=== PATIENT | male | born 1970 | race African-American/Black ===

== ENCOUNTER 2021-08-08 09:16 | Outpatient (CLI) | payer OTHER, SELFPAY ==
--- NOTE | ~2021-08-08 | XR_ITS ---
EXAMINATION: XR lumbar spine min 4V EXAM DATE: 08/08/2021 09:30 INDICATION: M54.50 - Low back pain, unspecified TECHNIQUE: Lumber spine frontal, lateral, bilateral oblique projections. Coned down frontal and lat eral L5-S1 lumbar projections for interpretation. There is no prior study for comparison. FINDINGS: There is no spondylolysis. The vertebral bodies are aligned in the AP dimension. Vertebral body and disc heights are well-maintained. Mild lumbar facet arthropathy. There are no acute fracture s identified. Sacrum, sacroiliac joints, sacral arcuate lines are intact. Paraspinal soft tissue is u nremarkable. IMPRESSION: Mild lumbar facet arthropathy. Reviewed, dictated and finalized at location A. [facility]
== END 2021-08-08 09:17 | disposition home or self-care (01) ==
PROVIDERS: PCP Family Medicine; Visit Provider Physician Assistant
DX: M54.50 Low back pain, unspecified (principal)
CPT/HCPCS: 72110

== ENCOUNTER 2023-03-26 02:49 | Emergency (ER) | payer OTHER, SELFPAY ==
--- NOTE | ~2023-03-26 | CT_ITS ---
Non-contrast CT scan of the Abdomen and Pelvis Clinical indication: Right flank pain Technique: 2.5 mm axial scans were obtained through the abdomen and pelvis without intravenous or or al contrast. Dose reduction technique was used on this scan by utilizing automated exposure control a nd iterative reconstruction technique. The dose-length product (DLP) was 581.32 mGy-cm. Findings: Images through the lung bases reveal no abnormalities. There is no evidence of renal or ureteral calculi. The kidneys and the ureters are nondilated. The liver, spleen, pancreas, gallbladder, and adrenals appear normal. There is no aortic aneurysm. There is no evidence of bowel obstruction. No evidence for appendicitis. Images through the pelvis were performed. There is no evidence of ascites or lymphadenopathy. Urinary bladder unremarkable. No pelvic mass seen. Impression: No significant abnormality seen. Reviewed, dictated and finalized at [facility]. Impression: No significant abnormality seen.
[2023-03-26 02:51] VITALS: BP 147/96; PULSE 65; RESP 16; TEMP 36.4; O2SAT 99
[2023-03-26] MEDS: ONDANSETRON INJ 4 MG/2 ML VIAL IV PUSH (03:47)
[2023-03-26] MEDS: SODIUM CHLORIDE 0.9% IV 1,000 ML 999 ML IV CONT (03:47)
[2023-03-26] MEDS: MORPHINE SULFATE (*CRX) 4 MG/ML INJ IV PUSH (03:48)
[2023-03-26 03:51] LABS: Basophils Percent Auto 0.4 % (0.2-1.2); Eosinophils Absolute Auto 0.4 K/mm3 (0-0.3); Eosinophils Percent Auto 5.4 % (0-4.4); Hematocrit 40.4 % (42.0-52.0); Hemoglobin 13.6 g/dL (14.0-18.0); Lymphocytes Absolute Auto 2.26 K/mm3 (0.9-3.2); Lymphocytes Percent Auto 30.5 % (18.3-44.2); Mean Corpuscular HGB Conc 33.7 g/dl (32-36); Mean Corpuscular Hemoglobin 30.3 pg (26-34); Mean Platelet Volume 10.7 fl (7.4-10.4); Monocytes Absolute Auto 0.6 K/mm3 (0.1-0.6); Monocytes Percent Auto 8.2 % (2.6-8.5); Neutrophils Absolute Auto 4.1 K/mm3 (1.3-6.7); Neutrophils Percent Auto 55.5 % (45.5-73.1); Platelet Count Result 233 k/mm3 (150-375); Red Blood Count 4.49 M/mm3 (4.6-6.20); Red Cell Distribution Width 11.9 % (11.5-14.5); White Blood Count 7.4 K/mm3 (4.5-10.0)
[2023-03-26 03:53] LABS: Appearance Urine Clear (Clear); Bilirubin Urine Negative (Negative); Blood Urine Negative (Negative); Color Urine Yellow (Yellow); Glucose Urine UA Negative (Negative); Ketones Urine Negative (Negative); Leukocyte Esterase Ur Negative LEU/UL (Negative); Nitrate Urine Negative (Negative); Protein Urine Negative (Negative); Specific Grav Ur 1.022 (1.001-1.035)
[2023-03-26 04:01] LABS: Lactic Acid Reflex 0.6 mmol/L (0.7-2.0)
[2023-03-26 04:02] LABS: Alanine Aminotransferase 26 U/L (6-50); Albumin Level 4.1 g/dL (3.5-5.1); Alkaline Phosphatase 72 U/L (38-126); Anion Gap 4 mmol/L (8-16); Aspartate Amino Transferase 26 U/L (17-59); Bilirubin,Total 0.8 mg/dL (0.2-1.3); Blood Urea Nitrogen 14 mg/dL (9-20); Calcium 8.8 mg/dL (8.4-10.2); Carbon Dioxide 28 mmol/L (22-30); Chloride 106 mmol/L (98-107); Estimated CRCL calculation 78 ml/min; Estimated Glomerular Filt Rate > 60; Glucose 107 mg/dL (65-110); Lipase 37 U/L (23-300); Potassium 3.7 mmol/L (3.4-5.0); Sodium 138 mmol/L (137-145)
[2023-03-26 04:13] LABS: Add Urine Microscopic? NO
[2023-03-26 04:30] VITALS: BP 133/82; PULSE 56; RESP 14; O2SAT 94
--- NOTE | 2023-03-26 05:04 | ED.GENADULT ---
HPI - General Adult General Chief complaint: Back Pain/Injury Stated complaint: back pain Time Seen by Provider: 03/26/23 03:01 History of Present Illness HPI narrative: Patient 52-year-old gentleman who presents emerged department with chief complaint of right flank pain. Patient reports that started having pain in the right flank area reports is worse with movement worse with inspiration. The patient denies any bowel or bladder symptoms denies numbness or tingling denies saddle anesthesia denies foot drop. Related Data Allergies Allergy/AdvReac Type Severity Reaction Status Date / Time No Known Allergies Allergy Verified 09/27/22 09:52 Review of Systems Review of Systems: A 10 system review of systems was completed on the patient and is negative except for what is stated in the HPI. Nursing and ancillary documentation was reviewed. [facility] Family History Family History Mother Family history of malignant neoplasm of breast in first degree relative Social History Social History Smoking status: Never smoker Alcohol intake: never Substance use: never Living arrangements: with family Occupation/Education: occupation Gender identity (if verbalized by the patient): Male Sexual Orientation (if Verbalized by the Patient): Straight or Heterosexual Spiritual care concerns: No Exam Narrative: GENERAL: Well-appearing, well-nourished, and in no acute distress. HEAD: Normocephalic, atraumatic. EYES: PERRLA and EOMI. ENT: Nares clear, no rhinorrhea or epistaxis. Mucous membranes moist. NECK: Supple. CHEST: Clear to auscultation. No respiratory distress. HEART: Regular rate and rhythm. No murmur heard. Normal peripheral pulses. ABDOMEN: Soft, nontender, nondistended, normal active bowel sounds. Flank: There is tenderness to palpation of the right flank area EXTREMITIES: Normal range of motion. No edema. SKIN: Warm, dry, no rash. NEURO: No focal deficits. Alert and oriented x3. PSYCH: Normal mood and affect. Course Vital Signs Vital signs: Vital Signs Temperature 36.4 C 03/26/23 02:51 Pulse Rate 65 03/26/23 02:51 Respiratory Rate 16 03/26/23 02:51 Blood Pressure 147/96 H 03/26/23 02:51 Pulse Oximetry 99 03/26/23 02:51 Oxygen Delivery Room Air 03/26/23 02:51 Temperature 36.4 C 03/26/23 02:51 Pulse Rate 56 L 03/26/23 04:30 Respiratory Rate 14 03/26/23 04:30 Blood Pressure 133/82 03/26/23 04:30 Pulse Oximetry 94 03/26/23 04:30 Oxygen Delivery Room Air 03/26/23 02:51 Medical Decision Making MDM Narrative Medical decision making narrative: Differential diagnosis includes musculoskeletal back pain, kidney stone, Laboratory studies were obtained which showed normal CBC electrolytes are within normal's lactic acid was normal urinalysis showed no acute findings CT scan of the abdomen pelvis showed no evidence of kidney stone no evidence of enlarged aorta no acute findings. Vital Signs Vital Signs: Vital Signs Temperature 36.4 C 03/26/23 02:51 Pulse Rate 65 03/26/23 02:51 Respiratory Rate 16 03/26/23 02:51 Blood Pressure 147/96 H 03/26/23 02:51 Pulse Oximetry 99 03/26/23 02:51 Oxygen Delivery Room Air 03/26/23 02:51 Temperature 36.4 C 03/26/23 02:51 Pulse Rate 56 L 03/26/23 04:30 Respiratory Rate 14 03/26/23 04:30 Blood Pressure 133/82 03/26/23 04:30 Pulse Oximetry 94 03/26/23 04:30 Oxygen Delivery Room Air 03/26/23 02:51 Lab Data 03/26/23 03:45 03/26/23 03:45 Labs: Lab Results 03/26/23 Range/Units 03:45 WBC 7.4 (4.5-10.0) K/mm3 RBC 4.49 L (4.6-6.20) M/mm3 Hgb 13.6 L (14.0-18.0) g/dL Hct 40.4 L (42.0-52.0) % MCV 90.0 (80-100) fl MCH 30.3 (26-34) pg MCHC 33.7 (32-36) g/dl RDW 11.9 (11.5-14.5) % Plt Count 23
== END 2023-03-26 06:37 | disposition home or self-care (01) ==
PROVIDERS: Emergency Provider Emergency Medicine; PCP Family Medicine
DX: R10.9 Unspecified abdominal pain (principal)
CPT/HCPCS: 36415; 74176; 80053; 81003; 83605; 83690; 85025; 96361; 96374; 96375; 99284; J2270; J2405; J7030

== ENCOUNTER 2023-04-10 07:51 | Emergency (ER) | payer OTHER, SELFPAY ==
--- NOTE | ~2023-04-10 | CT_ITS ---
EXAMINATION: CT abdomen pelvis w con DATE: 04/10/2023 10:16 INDICATION: Right-sided abdominal pain. Flank pain. TECHNIQUE: Computed tomography (CT) of the abdomen and pelvis was performed with 100 mL Omnipaque 350 intravenous contrast. Automated exposure control and iterative reconstruction technique were employe d. The dose-length product was 370.50 mGy-cm. COMPARISON: CT abdomen and pelvis 03/26/2023 FINDINGS: The visualized portions of the lung bases demonstrate minimal atelectasis. No pleural effus ion. The heart size is normal. No pericardial effusion. The liver, gallbladder, spleen, pancreas, and adrenal glands are normal. There is cortical thinning of the kidneys. There are no dilated loops of bowel. The appendix is normal. There are no pathologically enlarged lymph nodes. There is no free int raperitoneal fluid. There is mild thoracic spondylosis and moderate lower lumbar spondylosis. IMPRESSION: 1. No etiology for the patient's symptoms. Reviewed, dictated and finalized at location A.
[2023-04-10 07:52] VITALS: BP 149/65; PULSE 76; RESP 18; TEMP 36.5; O2SAT 98
[2023-04-10 08:10] LABS: Basophils Percent Auto 0.4 % (0.2-1.2); Eosinophils Absolute Auto 0.2 K/mm3 (0-0.3); Eosinophils Percent Auto 3.2 % (0-4.4); Hemoglobin 14.2 g/dL (14.0-18.0); Immature Granulocyte Absolute 0.01 K/mm3 (0.00-0.031); Immature Granulocyte Percent A 0.1 % (0-0.5); Lymphocytes Absolute Auto 2.13 K/mm3 (0.9-3.2); Lymphocytes Percent Auto 29.8 % (18.3-44.2); Mean Corpuscular HGB Conc 33.8 g/dl (32-36); Mean Corpuscular Hemoglobin 30.5 pg (26-34); Mean Corpuscular Volume 90.3 fl (80-100); Mean Platelet Volume 10.2 fl (7.4-10.4); Monocytes Absolute Auto 0.4 K/mm3 (0.1-0.6); Monocytes Percent Auto 4.9 % (2.6-8.5); Neutrophils Absolute Auto 4.4 K/mm3 (1.3-6.7); Neutrophils Percent Auto 61.6 % (45.5-73.1); Platelet Count Result 247 k/mm3 (150-375); Red Blood Count 4.65 M/mm3 (4.6-6.20); Red Cell Distribution Width 11.8 % (11.5-14.5); White Blood Count 7.2 K/mm3 (4.5-10.0)
[2023-04-10 08:16] LABS: Appearance Urine Clear (Clear); Bilirubin Urine Negative (Negative); Blood Urine Negative (Negative); Color Urine Yellow (Yellow); Glucose Urine UA Negative (Negative); Ketones Urine Negative (Negative); Leukocyte Esterase Ur Negative LEU/UL (Negative); Nitrate Urine Negative (Negative); Protein Urine Negative (Negative); Specific Grav Ur 1.027 (1.001-1.035)
[2023-04-10 08:22] LABS: Add Urine Microscopic? NO
[2023-04-10 08:24] LABS: Alanine Aminotransferase 23 U/L (6-50); Albumin Level 4.2 g/dL (3.5-5.1); Alkaline Phosphatase 61 U/L (38-126); Anion Gap 6 mmol/L (8-16); Aspartate Amino Transferase 22 U/L (17-59); Blood Urea Nitrogen 13 mg/dL (9-20); Calcium 8.6 mg/dL (8.4-10.2); Carbon Dioxide 27 mmol/L (22-30); Chloride 105 mmol/L (98-107); Estimated CRCL calculation 86 ml/min; Estimated Glomerular Filt Rate > 60; Glucose 165 mg/dL (65-110); Potassium 3.7 mmol/L (3.4-5.0); Sodium 138 mmol/L (137-145)
--- NOTE | 2023-04-10 09:41 | ED.ABDPAIN ---
HPI - Abdominal Pain General Chief Complaint: Back Pain/Injury Stated Complaint: back pain Time Seen by Provider: 04/10/23 09:16 Source: patient Mode of arrival: ambulatory Limitations: no limitations History of Present Illness HPI narrative: This is a 52-year-old male that presents to the emergency department for right-sided flank pain ongoing over the last couple of weeks. No recent injury or trauma. Reports he was evaluated in the emergency department for this and discharged with a muscle relaxer, Ibuprofen and Percocet. He had been taking these with little relief. He also saw his primary doctor who gave him a steroid shot. Reports now the pain is radiating into his abdomen which concerned him and prompted him to be seen again. Reports some constipation. Denies fever, vomiting, dysuria, or hematuria. Related Data Allergies Allergy/AdvReac Type Severity Reaction Status Date / Time No Known Allergies Allergy Verified 04/03/23 15:41 Review of Systems Review of Systems: CONSTITUTIONAL: Denies fever GASTROINTESTINAL: Reports abdominal pain, nausea, vomiting, or diarrhea. GENITOURINARY: Denies dysuria or hematuria. All systems reviewed & are unremarkable except as noted in HPI and below PMFSH Past Medical History Medical History Thoracic back pain Family History Family History Mother Family history of malignant neoplasm of breast in first degree relative Social History Social History Smoking status: Never smoker Alcohol intake: never Substance use: never Living arrangements: with family Occupation/Education: occupation Gender identity (if verbalized by the patient): Male Sexual Orientation (if Verbalized by the Patient): Straight or Heterosexual Spiritual care concerns: No Exam Narrative: GENERAL: Well-appearing, well-nourished, and in no acute distress. HEAD: Normocephalic, atraumatic. EYES: EOMI. CHEST: Clear to auscultation. No respiratory distress. No wheezes rales or rhonchi HEART: Regular rate and rhythm. No murmur heard. Normal peripheral pulses. ABDOMEN: Soft, nondistended, normal active bowel sounds. Tender to palpation in the right lower quadrant, without guarding EXTREMITIES: Normal range of motion. No edema. SKIN: Warm, dry, no rash. NEURO: No focal deficits. Alert and oriented x3. Normal gait PSYCH: Normal mood and affect Course Course Emergency Course: Patient was updated on work-up and agrees with plan of care Vital Signs Vital signs: Vital Signs Temperature 97.7 F 04/10/23 07:52 Pulse Rate 76 04/10/23 07:52 Respiratory Rate 18 04/10/23 07:52 Blood Pressure 149/65 H 04/10/23 07:52 Pulse Oximetry 98 04/10/23 07:52 Oxygen Delivery Room Air 04/10/23 07:52 Temperature 97.7 F 04/10/23 07:52 Pulse Rate 66 04/10/23 11:18 Respiratory Rate 16 04/10/23 11:18 Blood Pressure 153/88 H 04/10/23 11:18 Pulse Oximetry 98 04/10/23 11:18 Oxygen Delivery Room Air 04/10/23 07:52 MDM - Abdominal Pain MDM Narrative Medical decision making narrative: Patient presents emergency department for right-sided back pain radiating into his abdomen. This has been ongoing over the last couple of weeks. No recent injury or trauma. He is neurologically intact. He is afebrile and nontoxic-appearing. His vitals are stable. CBC and metabolic panel without concerning findings. His glucose is mildly elevated, he did recently receive a steroid. UA without evidence of infection. CT scan of abdomen and pelvis is without acute findings. Patient instructed to continue to use [id number] pain medication as needed and muscle relaxer as needed for pain. He is to follow-up with primary provider. He was given warnings to return to the ED Differential Diagnosis Differential diagn
[2023-04-10 09:54] VITALS: BP 141/60; PULSE 58; RESP 18; O2SAT 100
[2023-04-10] MEDS: KETOROLAC 15 MG/ML VIAL (*BKC) IV PUSH (11:16)
[2023-04-10] MEDS: ACETAMINOPHEN 500 MG TABLET 1000 MG PO (11:16)
[2023-04-10 11:18] VITALS: BP 153/88; PULSE 66; RESP 16; O2SAT 98
[2023-04-10 11:40] VITALS: BP 166/87; PULSE 60; RESP 18; O2SAT 99
== END 2023-04-10 11:42 | disposition home or self-care (01) ==
PROVIDERS: Emergency Medicine; Emergency Provider Physician Assistant; PCP Family Medicine
DX: M54.50 Low back pain, unspecified (principal)
CPT/HCPCS: 36415; 74177; 80053; 81003; 85025; 96374; 99284; A9270; J1885; Q9967

== ENCOUNTER → 2023-04-12 07:53 | Outpatient (CLI) | payer OTHER, SELFPAY ==
--- NOTE | ~2023-04-12 | US_ITS ---
US abdomen limited INDICATION: Right upper quadrant pain PROCEDURE: Realtime right upper abdominal ultrasound. COMPARISON: No prior studies for comparison. FINDINGS: The pancreas is normal without focal mass or pancreatic ductal dilation. Liver echotexture is normal without focal mass or intrahepatic biliary dilatation. There is normal directional flow i n the portal vein. The gallbladder is normal without stones, gallbladder wall thickening or pericholecystic fluid. Comm on bile duct measures 4.5 mm. No sonographic Cisse's sign. IMPRESSION: 1: Normal limited abdominal ultrasound. Reviewed, dictated and finalized at location L.
== END ==
PROVIDERS: PCP Family Medicine; Visit Provider Family Medicine
DX: R10.11 Right upper quadrant pain (principal)
CPT/HCPCS: 76705

== ENCOUNTER 2023-04-25 09:33 | Outpatient (CLI) | payer OTHER, SELFPAY ==
--- NOTE | ~2023-04-25 | NM_ITS ---
EXAMINATION: NM hepatobiliary wo pharm DATE: 04/25/2023 12:02 INDICATION: Unspecified abdominal pain. COMPARISON: CT abdomen and pelvis 04/10/2023 TECHNIQUE: 5.0 mCi Tc-99m mebrofenin (Choletec) was administered intravenously. Scintigraphic images of the abdomen were obtained for one hour. Then, the patient drank 8 oz Ensure, and imaging was cont inued for 60 minutes. FINDINGS: There is normal clearance of radiotracer from the blood pool. There is homogeneous tracer u ptake by the liver. Activity progresses to the bowel and gallbladder. Gallbladder ejection fraction (GBEF) was 35%. Note that with this technique, normal GBEF >= 33%. IMPRESSION: 1. Normal hepatobiliary scintigraphy. Reviewed, dictated and finalized at location E.
== END 2023-04-25 09:34 | disposition home or self-care (01) ==
PROVIDERS: PCP Family Medicine; Visit Provider Family Medicine
DX: R10.9 Unspecified abdominal pain (principal)
CPT/HCPCS: 78226; A9537

== ENCOUNTER 2023-06-11 09:03 | Outpatient (NON) | payer OTHER, SELFPAY | END 2023-06-11 09:04 | disposition home or self-care (01) | PROVIDERS: PCP Family Medicine; Visit Provider Internal Medicine Gastroenterology | DX: K29.80 Duodenitis without bleeding (principal) | CPT/HCPCS: 88305 ==

== ENCOUNTER 2023-06-11 09:04 | Day surgery (SDC) | payer OTHER, SELFPAY ==
[2023-05-23 13:28] VITALS: BMI 31.2
[2023-06-11 09:57] VITALS: BP 143/92; PULSE 87; RESP 16; TEMP 36.5; O2SAT 99
--- NOTE | 2023-06-11 10:13 | WPDANESEPPF ---
Anes - Initial Pre Proc Eval Procedure: Operation Date: 06/11/23 11:00 Proposed Procedures p Esophagogastroduodenoscopy - Klever Mistry MD s Colonoscopy - Klever Mistry MD Date/Time: 06/11/23 10:13 Surgeon: Klever Mistry MD Pre Op Diagnosis: Constipation, other specified S/S involving the Patient Data Age: 52 Gender: M Height: 1.6 m Weight: 78.3 kg Last Vital Signs Temp 36.5 C 06/11/23 09:57 Pulse 87 06/11/23 09:57 Resp 16 06/11/23 09:57 BP 143/92 H 06/11/23 09:57 Pulse Ox 99 06/11/23 09:57 O2 Del Method Room Air 06/11/23 09:57 Allergies Allergy/AdvReac Type Severity Reaction Status Date / Time No Known Allergies Allergy Verified 06/11/23 09:52 Home Medications Medication Instructions Recorded Confirmed Type sumatriptan succinate 50 mg tablet See Rx Instructions PO .COMPLEX 06/01/23 06/11/23 Rx (Imitrex) #10 tabs Patient hx anesthesia problems: none Family hx anesthesia problems: none Results Review: All pre-operative results and documents have been reviewed as part of the pre-operative evaluation. [facility] Past Medical History Medical History Bloating BMI 31.0-31.9,adult Change in bowel movement Constipation Right flank pain RUQ pain Thoracic back pain Family History Family History Mother Family history of malignant neoplasm of breast in first degree relative Breast cancer Father Cancer Sibling No problems noted. 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 Gender identity (if verbalized by the patient): Male Sexual Orientation (if Verbalized by the Patient): Straight or Heterosexual Spiritual care concerns: No Anes - Eval Final PreProcedure Day of Procedure 06/11/23 10:13 Patient weight: overweight Heart: regular rate and rhythm Lungs: clear to auscultation Airway: Mallampati scale class II Neurological: alert and oriented Last oral intake: >/= 8 hours ASA classification: II Emergent: no Anesthetic plan: proceed Anesthesia type and monitoring: general GIVS and standard monitoring Results Review: All pre-operative results and documents have been reviewed as part of the pre-operative evaluation. Informed Consent: The patient's anesthetic plan and its attendant risks and benefits were discussed with the patient/family/POA. Questions were solicited and answers provided to the satisfaction of the patient/family/POA.
[2023-06-11] MEDS: LACTATED RINGERS 1,000 ML 150 ML IV CONT (10:16)
--- NOTE | 2023-06-11 10:34 | WPDHPUPDATE1 ---
History and Physical Update Update Date/Time: 06/11/23 10:34 History and Physical has been reviewed, including an updated exam of the patient. There are NO changes in the patient's condition. Risks, benefits, and alternatives have been discussed and questions answered. Patient agrees to proceed with procedure.
[2023-06-11 11:13] VITALS: BP 117/75; PULSE 109; RESP 16; O2SAT 97
[2023-06-11 11:23] VITALS: BP 124/84; PULSE 89; RESP 16; O2SAT 98
[2023-06-11 11:33] VITALS: BP 124/81; PULSE 79; RESP 18; O2SAT 98
--- NOTE | 2023-06-11 11:52 | WPDANESPN ---
Anes - Prog Note Post-Op Date/Time: 06/11/23 11:52 Cardiovascular status: normal Respiratory status: normal Airway patency: baseline Mental status: baseline Post-Op hydration status: normal Vital Signs: Last Vital Signs Temp 36.5 C 06/11/23 09:57 Pulse 79 06/11/23 11:33 Resp 18 06/11/23 11:33 BP 124/81 06/11/23 11:33 Pulse Ox 98 06/11/23 11:33 O2 Del Method Room Air 06/11/23 11:33 Pain Score (VAS): 0 I/O: Intake & Output 06/10/23 06/11/23 06/11/23 23:59 07:59 15:59 Intake Total 500 Balance 500 Patient Feedback: Patient satisfied with anesthetic care.
== END 2023-06-11 11:57 | disposition home or self-care (01) ==
PROVIDERS: PCP Family Medicine; Visit Provider Internal Medicine Gastroenterology
PROC: 0DJ08ZZ Inspection of Upper Intestinal Tract, Via Natural or Artificial Opening Endoscopic (ICD-10-PCS; CPT 43235; principal; 2023-06-11 11:00)
PROC: 0DJD8ZZ Inspection of Lower Intestinal Tract, Via Natural or Artificial Opening Endoscopic (ICD-10-PCS; CPT 45378; 2023-06-11 11:00)
DX: Z12.11 Encounter for screening for malignant neoplasm of colon (principal); K59.00 Constipation, unspecified; K64.8 Other hemorrhoids; R10.11 Right upper quadrant pain; K29.70 Gastritis, unspecified, without bleeding
CPT/HCPCS: 45378; 43239